=== PATIENT | male | born 1980 | race Caucasian/White ===

== ENCOUNTER 2019-12-11 11:35 | Day surgery (SDC) | payer OTHER ==
[~2019-12-11] VITALS: Ht 177.8 cm; Wt 84.6 kg
[2019-12-11] MEDS ORDERED: EPINEPHrine SYRINGE 1 MG/10 ML SYRINGE ONE (12:00)
[2019-12-11] MEDS ORDERED: VECURONIUM BOLUS 10 MG VIAL. IV ONE (15:45)
[2019-12-11] MEDS ORDERED: ceFAZolin SODIUM IV Push 1 GM VIAL. IVP PRN (15:45)
[2019-12-11 16:23] LABS: BASO # 0.1 x10^3/uL (0.0-0.2); BASO % 0 % (0-3); EOS % 0 % (0-3); HEMATOCRIT 47.9 % (39.0-53.0); HEMOGLOBIN 15.5 g/dL (13.0-17.5); LYMPH # 1.7 x10^3/uL (1.0-4.8); LYMPH % 6 % (24-48); MEAN CORPUSCULAR HEMOGLOBIN 29 pg (25-35); MEAN CORPUSCULAR HGB CONC 32 g/dL (31-37); MEAN CORPUSCULAR VOLUME 88 fL (79-100); MONO % 4 % (0-9); NEUT # 24.3 x10^3/uL (1.8-7.7); NEUT % 90 % (31-73); PLATELET COUNT 265 x10^3/uL (140-400); RED BLOOD COUNT 5.43 x10^6/uL (4.30-5.70); RED CELL DISTRIBUTION WIDTH 14.1 % (11.5-14.5)
[2019-12-11 16:26] LABS: BILIRUBIN,URINE NEGATIVE (NEG); CLARITY,URINE CLEAR; COLOR,URINE YELLOW; NITRITE,URINE NEGATIVE (NEG); PROTEIN,URINE 30 mg/dL (NEG-TRACE); UROBILINOGEN,URINE 0.2 mg/dL (0.2 mg/dL)
[2019-12-11 16:35] LABS: BASE EXCESS ABG -10 mmol/L (-3-3); HCO3 ABG 14 mmol/L (21-28); PCO2 ABG 26 mmHg (35-46); PO2 ABG 226 mmHg (85-108); SAT O2 ABG 99 % (92-99)
[2019-12-11 16:36] LABS: FIO2 ABG 100
[2019-12-11 16:45] LABS: PROTHROMBIN TIME PATIENT 13.2 SEC (11.7-14.0)
[2019-12-11 16:54] LABS: GRANULAR CASTS,URINE FEW /HPF
[2019-12-11 16:55] LABS: BACTERIA,URINE 0 /HPF (0-FEW)
[2019-12-11 16:57] LABS: SPERM,URINE PRESENT /HPF
[2019-12-11 17:03] LABS: ALBUMIN 3.1 g/dL (3.4-5.0); CALCIUM 7.8 mg/dL (8.5-10.1); CREATININE 5.2 mg/dL (0.7-1.3); DIRECT BILIRUBIN 0.2 mg/dL (0.0-0.2); GFR 12.5; MAGNESIUM 1.8 mg/dL (1.8-2.4); PHOSPHORUS 1.3 mg/dL (2.6-4.7); TOTAL BILIRUBIN 0.9 mg/dL (0.2-1.0); TOTAL PROTEIN 5.9 g/dL (6.4-8.2)
[2019-12-11 17:08] LABS: POTASSIUM 8.5 mmol/L (3.5-5.1)
[2019-12-11] MEDS ORDERED: ALBUMIN HUMAN 25% 50 ML IV ONE (17:45)
[2019-12-11] MEDS ORDERED: CALCIUM CHLORIDE 1,000 MG/10 ML DISP.SYRIN IV ONE (17:45)
[2019-12-11 17:51] LABS: BASE EXCESS ABG -11 mmol/L (-3-3); HCO3 ABG 14 mmol/L (21-28); PCO2 ABG 30 mmHg (35-46); PO2 ABG 320 mmHg (85-108); SAT O2 ABG 99 % (92-99)
[2019-12-11 17:52] LABS: FIO2 ABG 100
[2019-12-11] MEDS ORDERED: NOREPINEPHRINE VIAL 8 MG in IV DEXTROSE 5% 250 ML IV PRN (18:00)
[2019-12-11] MEDS ORDERED: SODIUM BICARB ADULT 8.4% 50 MEQ/50 ML DISP.SYRIN. IV ONE (18:00)
[2019-12-11] MEDS ORDERED: NOREPINEPHRINE VIAL 32 MG in IV DEXTROSE 5% 250 ML IV PRN (18:00)
[2019-12-11 18:57] LABS: % BANDS 20 % (0-9); % LYMPHS 7 % (24-48); % MONOS 2 % (0-10); % SEGS 71 % (35-66); PLT ESTIMATE ADEQUATE (ADEQUATE)
[2019-12-11 19:00] VITALS: BP 122/78
[2019-12-11] MEDS ORDERED: FUROSEMIDE 20 MG/2 ML VIAL. IVP ONE (19:00)
[2019-12-11] MEDS ORDERED: LIDOCAINE WITH 8.4% SOD BICARB 3 ML DISP.SYRIN. ONE (19:42)
[2019-12-11] MEDS ORDERED: IV NORMAL SALINE 500ML BAG 500 ML IV ONE (19:45)
[2019-12-11] MEDS ORDERED: LIDOCAINE WITH 8.4% SOD BICARB 3 ML DISP.SYRIN. INJ ONE (19:45)
[2019-12-11 20:00] VITALS: BP 126/84
--- NOTE | 2019-12-11 20:45 | RAD ---
PORTABLE CHEST 1V INDICATION: Dialysis line insertion. COMPARISON STUDY: 12/11/2019. FINDINGS: Life Support Devices: Right IJ dual-lumen catheter terminates at the superior cavoatrial junction. Stable enteric and symmetric tube. Lungs: Normal lung volume. Mild bibasilar opacities. Normal pulmonary vasculature. Pleura: No pleural effusion or pneumothorax. Heart and Mediastinum: Stable cardiomediastinal silhouette and great vessels. IMPRESSION: 1. New right IJ dual-lumen catheter terminating at the superior cavoatrial junction. No pneumothorax. Remaining life support devices are stable. 2. Mild bibasilar opacities, possibly subsegmental atelectasis. Electronically signed by: Franky Leone MD (12/11/2019 8:42 PM) [id number]
[2019-12-11 21:00] VITALS: BP 108/72
[2019-12-11 21:52] LABS: BASO % 0 % (0-3); EOS % 0 % (0-3); HEMATOCRIT 45.2 % (39.0-53.0); HEMOGLOBIN 14.8 g/dL (13.0-17.5); LYMPH # 1.2 x10^3/uL (1.0-4.8); LYMPH % 6 % (24-48); MEAN CORPUSCULAR HEMOGLOBIN 29 pg (25-35); MEAN CORPUSCULAR HGB CONC 33 g/dL (31-37); MEAN CORPUSCULAR VOLUME 89 fL (79-100); MONO # 0.6 x10^3/uL (0.0-1.1); MONO % 3 % (0-9); NEUT # 19.1 x10^3/uL (1.8-7.7); NEUT % 92 % (31-73); PLATELET COUNT 210 x10^3/uL (140-400); RED BLOOD COUNT 5.09 x10^6/uL (4.30-5.70); RED CELL DISTRIBUTION WIDTH 14.1 % (11.5-14.5); WHITE BLOOD COUNT 20.8 x10^3/uL (4.0-11.0)
[2019-12-11 22:00] VITALS: BP 99/65
[2019-12-11 22:01] LABS: PROTHROMBIN TIME PATIENT 13.3 SEC (11.7-14.0)
[2019-12-11] MEDS ORDERED: IV NORMAL SALINE 1000ML BAG 1,000 ML IV PRN ×2 (22:03)
[2019-12-11] MEDS ORDERED: 0.9 % SODIUM CHLORIDE 10 ML DISP.SYRIN. IV PRN ×2 (22:15)
[2019-12-11] MEDS ORDERED: DIALYSIS PATIENT. MC PRN ×2 (22:15)
[2019-12-11 22:25] LABS: ALBUMIN 3.2 g/dL (3.4-5.0); CALCIUM 8.6 mg/dL (8.5-10.1); CREATININE 5.1 mg/dL (0.7-1.3); DIRECT BILIRUBIN 0.3 mg/dL (0.0-0.2); GFR 12.8; PHOSPHORUS 2.7 mg/dL (2.6-4.7); TOTAL BILIRUBIN 1.1 mg/dL (0.2-1.0); TOTAL PROTEIN 6.3 g/dL (6.4-8.2)
[2019-12-11 22:33] LABS: POTASSIUM 8.1 mmol/L (3.5-5.1)
[2019-12-11 23:00] VITALS: BP 88/65
[2019-12-11 23:17] LABS: BASE EXCESS ABG -8 mmol/L (-3-3); CORRECTED PCO2 ABG 37 mmHg; CORRECTED PO2 ABG 313 mmHg; HCO3 ABG 18 mmol/L (21-28); SAT O2 ABG 99 % (92-99)
[2019-12-11] MEDS ORDERED: IV NORMAL SALINE 1000ML BAG 1,000 ML IV ONE (23:30)
[2019-12-11 23:35] LABS: FIO2 ABG 100; PCO2 ABG 40 mmHg (35-46); PO2 ABG 320 mmHg (85-108)
[2019-12-12] VITALS (9 sets, daily range): BP systolic 88–120; BP diastolic 44–80
[2019-12-12] MEDS ORDERED: VASOPRESSIN 40 UNIT in IV DEXTROSE 5% 100ML 100 ML IV ONE ×2
[2019-12-12] MEDS: VASOPRESSIN 20 UNIT in IV DEXTROSE 5% 100ML 100 ML IV PRN ×2 (00:22→09:43)
[2019-12-12] MEDS ORDERED: ALBUMIN HUMAN 25% 100 ML IV ONE ×2 (00:30→12:30)
[2019-12-12] MEDS ORDERED: ALBUMIN HUMAN 25% 50 ML IV ONE ×3 (00:30→12:15)
[2019-12-12] MEDS: IV NORMAL SALINE 1000ML BAG 1,000 ML IV SCH ×3 (02:06→09:59)
[2019-12-12 05:07] LABS: BASO # 0.1 x10^3/uL (0.0-0.2); BASO % 0 % (0-3); EOS % 0 % (0-3); HEMATOCRIT 38.9 % (39.0-53.0); HEMOGLOBIN 12.9 g/dL (13.0-17.5); LYMPH # 1.4 x10^3/uL (1.0-4.8); LYMPH % 6 % (24-48); MEAN CORPUSCULAR HEMOGLOBIN 29 pg (25-35); MEAN CORPUSCULAR HGB CONC 33 g/dL (31-37); MEAN CORPUSCULAR VOLUME 88 fL (79-100); MONO # 0.9 x10^3/uL (0.0-1.1); MONO % 4 % (0-9); NEUT # 19.2 x10^3/uL (1.8-7.7); NEUT % 89 % (31-73); PLATELET COUNT 195 x10^3/uL (140-400); RED BLOOD COUNT 4.42 x10^6/uL (4.30-5.70); RED CELL DISTRIBUTION WIDTH 14.3 % (11.5-14.5); WHITE BLOOD COUNT 21.5 x10^3/uL (4.0-11.0)
[2019-12-12 05:21] LABS: PROTHROMBIN TIME PATIENT 13.5 SEC (11.7-14.0)
[2019-12-12 05:27] LABS: ALBUMIN 3.4 g/dL (3.4-5.0); DIRECT BILIRUBIN 0.4 mg/dL (0.0-0.2); MAGNESIUM 1.5 mg/dL (1.8-2.4); PHOSPHORUS 5.7 mg/dL (2.6-4.7); TOTAL BILIRUBIN 1.3 mg/dL (0.2-1.0)
[2019-12-12 05:35] LABS: BASE EXCESS ABG -5 mmol/L (-3-3); CORRECTED PCO2 ABG 33 mmHg; CORRECTED PH ABG 7.38; CORRECTED PO2 ABG 338 mmHg; HCO3 ABG 19 mmol/L (21-28); PCO2 ABG 33 mmHg (35-46); PO2 ABG 337 mmHg (85-108); SAT O2 ABG 99 % (92-99)
[2019-12-12 05:41] LABS: CALCIUM 8.1 mg/dL (8.5-10.1); CREATININE 3.6 mg/dL (0.7-1.3); GFR 19.1; POTASSIUM 4.4 mmol/L (3.5-5.1)
[2019-12-12] MEDS ORDERED: MAGNESIUM SULFATE 2GM 50 ML IV ONE (06:00)
[2019-12-12 06:02] LABS: FIO2 ABG 100
[2019-12-12] MEDS ORDERED: CALCIUM CHLORIDE 1,000 MG in IV NORMAL SALINE 100ML 100 ML IV ONE ×3 (06:30→19:00)
--- NOTE | 2019-12-12 06:47 | RAD ---
PORTABLE CHEST 1V Clinical History: Technique: AP view of the chest was obtained at 12/12/2019 5:00 AM. Comparison: December 11, 2019. Findings: The heart is normal size. The portal vessels appear normal. There is patchy opacities in the lung bases. The endotracheal tube NG tube and right jugular dual-lumen catheter unchanged. Impression: Basal infiltrates appear improved and are likely resolving discoid atelectasis. Electronically signed by: Mumtaz Peck III, MD (12/12/2019 6:45 AM) [id number]
--- NOTE | 2019-12-12 08:49 | PDOC2 ---
CONSULT Date of Consult Date of Consult DATE: 12/12/19 TIME: 08:41 Reason for Consult Reason for Consult: Acute kidney injury, critical hyperkalemia Referring Physician Referring Physician: [facility] Identification/Chief Complaint Chief Complaint Prisoner hung himself Source Source: Unable to obtain due to (Other) History of Present Illness Reason for Visit: Ricky is a 39-year-old male inmate who was found down and his cell by another inmate. Reportedly 45 minutes of CPR was done. He was brought to our facility where he was noted to have a potassium of 8.5 and a bicarbonate of 17 BUN of 43 and a creatinine of 5.2 phosphorus of 1.3 elevated LFTs and LDH of 1695 and a CPK of 5700 and troponin of 71. In this setting I was asked by [facility] to provide dialysis to correct his electrolytes in light of potential organ harvesting. Patient is currently deemed to be and hence I'm unable to get much in terms of other history from him. No other source of information is readily available at this time. Past Medical History Pulmonary: No pertinent hx Heme/Onc: No pertinent hx Hepatobiliary: No pertinent hx Psych: Depression Renal/: No pertinent hx Endocrine: No pertinent hx Family History Family History: Family History Unknown Social History # pack years ALCOHOL: none Drugs: None Current Medications Current Medications Current Medications Vecuronium [place] (Norcuron Bolus) 10 mg 1X ONCE IV Last administered on 12/11/19at 15:45; Start 12/11/19 at 15:45; Stop 12/11/19 at 15:48; Status DC Cefazolin Sodium (Ancef) 1 gm 1X PREOP PRN IVP PRIOR TO PROCEDURE; Start 12/11/19 at 15:45 Calcium Chloride (Calcium Chloride) 1,000 mg 1X ONCE IV Last administered on 12/11/19at 17:57; Start 12/11/19 at 17:45; Stop 12/11/19 at 17:49; Status DC Albumin Human 50 ml @ 50 mls/hr 1X ONCE IV Last administered on 12/11/19at 17:56; Start 12/11/19 at 17:45; Stop 12/11/19 at 18:44; Status DC Sodium Chloride 1,000 ml @ 175 mls/hr Q5H43M IV Last administered on 12/12/19at 02:06; Start 12/11/19 at 18:00 Norepinephrine Bitartrate 32 mg/ Dextrose 282 ml @ 4.317 mls/ hr CONT PRN IV PER PROTOCOL; Start 12/11/19 at 18:00; Status UNV Norepinephrine Bitartrate 8 mg/ Dextrose 258 ml @ 17.996 mls/ hr CONT PRN IV PER PROTOCOL; Start 12/11/19 at 18:00 Sodium Bicarbonate (Sodium Bicarb Adult 8.4% Syr) 50 meq 1X ONCE IV Last administered on 12/11/19at 17:58; Start 12/11/19 at 18:00; Stop 12/11/19 at 18:01; Status DC Furosemide (Lasix) 60 mg 1X ONCE IVP Last administered on 12/11/19at 19:39; Start 12/11/19 at 19:00; Stop 12/11/19 at 19:01; Status DC Sodium Chloride 500 ml @ 500 mls/hr 1X ONCE IV Last administered on 12/11/19at 19:45; Start 12/11/19 at 19:45; Stop 12/11/19 at 20:44; Status DC Lidocaine HCl (Buffered Lidocaine 1%) 6 ml 1X ONCE INJ Last administered on 12/11/19at 20:09; Start 12/11/19 at 19:45; Stop 12/11/19 at 19:46; Status DC Lidocaine HCl (Buffered Lidocaine 1%) 3 ml STK-MED ONCE .ROUTE ; Start 12/11/19 at 19:42; Stop 12/11/19 at 19:43; Status DC Sodium Chloride 1,000 ml @ 1,000 mls/hr Q1H PRN IV hypotension; Start 12/11/19 at 22:03; Stop 12/12/19 at 04:02; Status DC Sodium Chloride (Normal Saline Flush) 10 ml 1X PRN PRN IV AP catheter pack; Start 12/11/19 at 22:15; Stop 12/12/19 at 22:14 Sodium Chloride (Normal Saline Flush) 10 ml 1X PRN PRN IV [employer]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; Start 12/11/19 at 22:15; Stop 12/12/19 at 22:14 Sodium Chloride 1,000 ml @ 400 mls/hr Q2H30M PRN IV PATENCY; Start 12/11/19 at 22:03; Stop 12/12/19 at 10:02 Info (PHARMACY MONITORING -- do not chart) 1 each PRN DAILY PRN MC SEE COMMENTS; Start 12/11/19 at 22:15; Status UNV Info (PHARMACY MONITORING -- do not chart) 1 each PRN DAILY PRN MC SEE COMMENTS; Start 12/11/19 at 22:15 Sodium Chloride 1,000 ml @ 1,000 mls/hr 1X ONCE IV Last administered on 12/11/19at 23:23; Start 12/11/19 at 23:30; Stop 12/12/19 at 00:29; Status DC Vasopressin 40 unit/Dextrose 102 ml @ 6 mls/hr 1X ONCE IV ; Start 12/12/19 at 00:00; Stop 12/12/19 at 16:59; Status UNV Vasopressin 20 unit/Dextrose 101 ml @ 12 mls/hr CONT PRN IV SEE I/O RECORD Last administered on 12/12/19at 00:22; Start 12/11/19 at 23:45 Albumin Human 100 ml @ 0 mls/hr 1X ONCE IV Last administered on 12/12/19at 00:04; Start 12/12/19 at 00:30; Stop 12/12/19 at 00:31; Status DC Albumin Human 50 ml @ 50 mls/hr 1X ONCE IV ; Start 12/12/19 at 00:30; Stop 12/12/19 at 01:29; Status DC Magnesium Sulfate 50 ml @ 25 mls/hr 1X ONCE IV Last administered on 12/12/19at 06:36; Start 12/12/19 at 06:00; Stop 12/12/19 at 07:59; Status DC Calcium Chloride 1000 mg/Sodium Chloride 110 ml @ 220 mls/hr 1X ONCE IV Last administered on 12/12/19at 05:53; Start 12/12/19 at 06:30; Stop 12/12/19 at 06:59; Status DC Allergies Allergies: Coded Allergies: No Known Drug Allergies (Unverified , 12/10/19) ROS Review of System Unable to be obtained Physical Exam Physical Exam Patient remains intubated, lying prone Lungs are clear to auscultation Heart sounds are S1-S2 No bowel sounds No edema Multnai catheter in place No palpable organomegaly No skin rashes Vital Signs Vital Signs Date Time Temp Pulse Resp B/P (MAP) Pulse Ox O2 Delivery O2 Flow Rate FiO2 12/12/19 07:40 99 Ventilator 12/12/19 06:00 99.1 115 20 100/58 (72) 99.1 Assessment & Plan Critical hyperkalemia: Status post dialysis as requested by bedrest transplant at work yesterday. This was accomplished late last night. Potassium was corrected after dialysis and is down to 4.4 currently. Acute renal failure urine output is preserved Several rhabdomyolysis Possible non-STEMI We'll be available for dialysis if required. Labs Labs Laboratory Tests Test 12/11/19 16:10 12/11/19 16:15 12/11/19 16:30 12/11/19 17:30 White Blood Count 27.0 x10^3/uL (4.0-11.0) Red Blood Count 5.43 x10^6/uL (4.30-5.70) Hemoglobin 15.5 g/dL (13.0-17.5) Hematocrit 47.9 % (39.0-53.0) Mean Corpuscular Volume 88 fL (79-100) Mean Corpuscular Hemoglobin 29 pg (25-35) Mean Corpuscular Hemoglobin Concent 32 g/dL (31-37) Red Cell Distribution Width 14.1 % (11.5-14.5) Platelet Count 265 x10^3/uL (140-400) Neutrophils (%) (Auto) 90 % (31-73) Lymphocytes (%) (Auto) 6 % (24-48) Monocytes (%) (Auto) 4 % (0-9) Eosinophils (%) (Auto) 0 % (0-3) Basophils (%) (Auto) 0 % (0-3) Neutrophils # (Auto) 24.3 x10^3/uL (1.8-7.7) Lymphocytes # (Auto) 1.7 x10^3/uL (1.0-4.8) Monocytes # (Auto) 1.0 x10^3/uL (0.0-1.1) Eosinophils # (Auto) 0.0 x10^3/uL (0.0-0.7) Basophils # (Auto) 0.1 x10^3/uL (0.0-0.2) Segmented Neutrophils % 71 % (35-66) Band Neutrophils % 20 % (0-9) Lymphocytes % 7 % (24-48) Monocytes % 2 % (0-10) Platelet Estimate Adequate (ADEQUATE) Prothrombin Time 13.2 SEC (11.7-14.0) Prothromb Time International Ratio 1.0 (0.8-1.1) Activated Partial Thromboplast Time 32 SEC (24-38) Fibrinogen 388 mg/dL (200-440) Sodium Level 137 mmol/L (136-145) Potassium Level 8.5 mmol/L (3.5-5.1) 8.0 mmol/L (3.5-5.1) Chloride Level 108 mmol/L (98-107) Carbon Dioxide Level 17 mmol/L (21-32) Anion Gap 12 (6-14) Blood Urea Nitrogen 43 mg/dL (8-26) Creatinine 5.2 mg/dL (0.7-1.3) Estimated GFR (Cockcroft-Gault) 12.5 Glucose Level 96 mg/dL (70-99) Lactic Acid Level 1.5 mmol/L (0.4-2.0) Calcium Level 7.8 mg/dL (8.5-10.1) Ionized Calcium 0.99 mmol/L (1.13-1.32) Phosphorus Level 1.3 mg/dL (2.6-4.7) Magnesium Level 1.8 mg/dL (1.8-2.4) Total Bilirubin 0.9 mg/dL (0.2-1.0) Direct Bilirubin 0.2 mg/dL (0.0-0.2) Gamma Glutamyl Transpeptidase 226 U/L (10-85) Aspartate Amino Transf (AST/SGOT) 954 U/L (15-37) Alanine Aminotransferase (ALT/SGPT) 767 U/L (16-63) Alkaline Phosphatase 108 U/L (46-116) Lactate Dehydrogenase 1695 U/L (85-227) Creatine Kinase 5697 U/L (39-308) Troponin I Quantitative 71.544 ng/mL (0.000-0.055) Total Protein 5.9 g/dL (6.4-8.2) Albumin 3.1 g/dL (3.4-5.0) Amylase Level 277 U/L (25-115) Lipase 182 U/L (73-393) Urine Collection Type Unknown Urine Color Yellow Urine Clarity Clear Urine pH 6.0 Urine Specific [place] 1.015 Urine Protein 30 mg/dL (NEG-TRACE) Urine Glucose (UA) Negative mg/dL (NEG) Urine Ketones (Stick) Negative mg/dL (NEG) Urine Blood Large (NEG) Urine Nitrite Negative (NEG) Urine Bilirubin Negative (NEG) Urine Urobilinogen Dipstick 0.2 mg/dL (0.2 mg/dL) Urine Leukocyte Esterase Negative (NEG) Urine RBC 3-5 /HPF (0-2) Urine WBC 5-10 /HPF (0-4) Urine Bacteria 0 /HPF (0-FEW) Urine Granular Casts Few /HPF Urine Mucus Slight /LPF Urine Sperm Present /HPF O2 Saturation 99 % (92-99) Arterial Blood pH 7.34 (7.35-7.45) Arterial Blood pCO2 at Patient Temp 26 mmHg (35-46) Arterial Blood pO2 at Patient Temp 226 mmHg (85-108) Arterial Blood HCO3 14 mmol/L (21-28) Arterial Blood Base Excess -10 mmol/L (-3-3) FiO2 100 Test 12/11/19 17:45 12/11/19 18:24 12/11/19 21:30 12/11/19 21:41 O2 Saturation 99 % (92-99) Arterial Blood pH 7.29 (7.35-7.45) Arterial Blood pCO2 at Patient Temp 30 mmHg (35-46) Arterial Blood pO2 at Patient Temp 320 mmHg (85-108) Arterial Blood HCO3 14 mmol/L (21-28) Arterial Blood Base Excess -11 mmol/L (-3-3) FiO2 100 Glucose (Fingerstick) 89 mg/dL (70-99) 106 mg/dL (70-99) White Blood Count 20.8 x10^3/uL (4.0-11.0) Red Blood Count 5.09 x10^6/uL (4.30-5.70) Hemoglobin 14.8 g/dL (13.0-17.5) Hematocrit 45.2 % (39.0-53.0) Mean Corpuscular Volume 89 fL (79-100) Mean Corpuscular Hemoglobin 29 pg (25-35) Mean Corpuscular Hemoglobin Concent 33 g/dL (31-37) Red Cell Distribution Width 14.1 % (11.5-14.5) Platelet Count 210 x10^3/uL (140-400) Neutrophils (%) (Auto) 92 % (31-73) Lymphocytes (%) (Auto) 6 % (24-48) Monocytes (%) (Auto) 3 % (0-9) Eosinophils (%) (Auto) 0 % (0-3) Basophils (%) (Auto) 0 % (0-3) Neutrophils # (Auto) 19.1 x10^3/uL (1.8-7.7) Lymphocytes # (Auto) 1.2 x10^3/uL (1.0-4.8) Monocytes # (Auto) 0.6 x10^3/uL (0.0-1.1) Eosinophils # (Auto) 0.0 x10^3/uL (0.0-0.7) Basophils # (Auto) 0.0 x10^3/uL (0.0-0.2) Prothrombin Time 13.3 SEC (11.7-14.0) Prothromb Time International Ratio 1.0 (0.8-1.1) Activated Partial Thromboplast Time 28 SEC (24-38) Fibrinogen 424 mg/dL (200-440) Sodium Level 143 mmol/L (136-145) Potassium Level 8.1 mmol/L (3.5-5.1) Chloride Level 113 mmol/L (98-107) Carbon Dioxide Level 17 mmol/L (21-32) Anion Gap 13 (6-14) Blood Urea Nitrogen 48 mg/dL (8-26) Creatinine 5.1 mg/dL (0.7-1.3) Estimated GFR (Cockcroft-Gault) 12.8 Glucose Level 120 mg/dL (70-99) Lactic Acid Level 1.0 mmol/L (0.4-2.0) Calcium Level 8.6 mg/dL (8.5-10.1) Ionized Calcium 1.13 mmol/L (1.13-1.32) Phosphorus Level 2.7 mg/dL (2.6-4.7) Magnesium Level 2.0 mg/dL (1.8-2.4) Total Bilirubin 1.1 mg/dL (0.2-1.0) Direct Bilirubin 0.3 mg/dL (0.0-0.2) Gamma Glutamyl Transpeptidase 188 U/L (10-85) Aspartate Amino Transf (AST/SGOT) 908 U/L (15-37) Alanine Aminotransferase (ALT/SGPT) 729 U/L (16-63) Alkaline Phosphatase 112 U/L (46-116) Lactate Dehydrogenase 1713 U/L (85-227) Creatine Kinase 5553 U/L (39-308) Troponin I Quantitative 38.041 ng/mL (0.000-0.055) Total Protein 6.3 g/dL (6.4-8.2) Albumin 3.2 g/dL (3.4-5.0) Amylase Level 265 U/L (25-115) Lipase 111 U/L (73-393) Test 12/11/19 23:02 12/12/19 02:54 12/12/19 04:50 12/12/19 04:51 O2 Saturation 99 % (92-99) Arterial Blood pH 7.28 (7.35-7.45) Arterial Blood pH (Temp corrected) 7.30 Arterial Blood pCO2 at Patient Temp 40 mmHg (35-46) Arterial Blood pCO2 (Temp correct) 37 mmHg Arterial Blood pO2 at Patient Temp 320 mmHg (85-108) Arterial Blood pO2 (Temp corrected) 313 mmHg Arterial Blood HCO3 18 mmol/L (21-28) Arterial Blood Base Excess -8 mmol/L (-3-3) FiO2 100 Glucose (Fingerstick) 140 mg/dL (70-99) 133 mg/dL (70-99) White Blood Count 21.5 x10^3/uL (4.0-11.0) Red Blood Count 4.42 x10^6/uL (4.30-5.70) Hemoglobin 12.9 g/dL (13.0-17.5) Hematocrit 38.9 % (39.0-53.0) Mean Corpuscular Volume 88 fL (79-100) Mean Corpuscular Hemoglobin 29 pg (25-35) Mean Corpuscular Hemoglobin Concent 33 g/dL (31-37) Red Cell Distribution Width 14.3 % (11.5-14.5) Platelet Count 195 x10^3/uL (140-400) Neutrophils (%) (Auto) 89 % (31-73) Lymphocytes (%) (Auto) 6 % (24-48) Monocytes (%) (Auto) 4 % (0-9) Eosinophils (%) (Auto) 0 % (0-3) Basophils (%) (Auto) 0 % (0-3) Neutrophils # (Auto) 19.2 x10^3/uL (1.8-7.7) Lymphocytes # (Auto) 1.4 x10^3/uL (1.0-4.8) Monocytes # (Auto) 0.9 x10^3/uL (0.0-1.1) Eosinophils # (Auto) 0.0 x10^3/uL (0.0-0.7) Basophils # (Auto) 0.1 x10^3/uL (0.0-0.2) Prothrombin Time 13.5 SEC (11.7-14.0) Prothromb Time International Ratio 1.1 (0.8-1.1) Activated Partial Thromboplast Time 29 SEC (24-38) Fibrinogen 438 mg/dL (200-440) Sodium Level 143 mmol/L (136-145) Potassium Level 4.4 mmol/L (3.5-5.1) Chloride Level 105 mmol/L (98-107) Carbon Dioxide Level 24 mmol/L (21-32) Anion Gap 14 (6-14) Blood Urea Nitrogen 27 mg/dL (8-26) Creatinine 3.6 mg/dL (0.7-1.3) Estimated GFR (Cockcroft-Gault) 19.1 Glucose Level 144 mg/dL (70-99) Lactic Acid Level 1.7 mmol/L (0.4-2.0) Calcium Level 8.1 mg/dL (8.5-10.1) Ionized Calcium 0.98 mmol/L (1.13-1.32) Phosphorus Level 5.7 mg/dL (2.6-4.7) Magnesium Level 1.5 mg/dL (1.8-2.4) Total Bilirubin 1.3 mg/dL (0.2-1.0) Direct Bilirubin 0.4 mg/dL (0.0-0.2) Gamma Glutamyl Transpeptidase 147 U/L (10-85) Aspartate Amino Transf (AST/SGOT) 703 U/L (15-37) Alanine Aminotransferase (ALT/SGPT) 636 U/L (16-63) Alkaline Phosphatase 102 U/L (46-116) Lactate Dehydrogenase 1498 U/L (85-227) Creatine Kinase 4068 U/L (39-308) Troponin I Quantitative 23.921 ng/mL (0.000-0.055) Total Protein 6.0 g/dL (6.4-8.2) Albumin 3.4 g/dL (3.4-5.0) Amylase Level 210 U/L (25-115) Lipase 52 U/L (73-393) Hepatitis B Surface Antigen Nonreactive (Nonreactive) Hepatitis B Surface Antibody Nonreactive Test 12/12/19 05:34 O2 Saturation 99 % (92-99) Arterial Blood pH 7.39 (7.35-7.45) Arterial Blood pH (Temp corrected) 7.38 Arterial Blood pCO2 at Patient Temp 33 mmHg (35-46) Arterial Blood pCO2 (Temp correct) 33 mmHg Arterial Blood pO2 at Patient Temp 337 mmHg (85-108) Arterial Blood pO2 (Temp corrected) 338 mmHg Arterial Blood HCO3 19 mmol/L (21-28) Arterial Blood Base Excess -5 mmol/L (-3-3) FiO2 100 Laboratory Tests Test 12/11/19 16:10 12/11/19 16:15 12/11/19 16:30 12/11/19 17:30 White Blood Count 27.0 x10^3/uL (4.0-11.0) Red Blood Count 5.43 x10^6/uL (4.30-5.70) Hemoglobin 15.5 g/dL (13.0-17.5) Hematocrit 47.9 % (39.0-53.0) Mean Corpuscular Volume 88 fL (79-100) Mean Corpuscular Hemoglobin 29 pg (25-35) Mean Corpuscular Hemoglobin Concent 32 g/dL (31-37) Red Cell Distribution Width 14.1 % (11.5-14.5) Platelet Count 265 x10^3/uL (140-400) Neutrophils (%) (Auto) 90 % (31-73) Lymphocytes (%) (Auto) 6 % (24-48) Monocytes (%) (Auto) 4 % (0-9) Eosinophils (%) (Auto) 0 % (0-3) Basophils (%) (Auto) 0 % (0-3) Neutrophils # (Auto) 24.3 x10^3/uL (1.8-7.7) Lymphocytes # (Auto) 1.7 x10^3/uL (1.0-4.8) Monocytes # (Auto) 1.0 x10^3/uL (0.0-1.1) Eosinophils # (Auto) 0.0 x10^3/uL (0.0-0.7) Basophils # (Auto) 0.1 x10^3/uL (0.0-0.2) Segmented Neutrophils % 71 % (35-66) Band Neutrophils % 20 % (0-9) Lymphocytes % 7 % (24-48) Monocytes % 2 % (0-10) Platelet Estimate Adequate (ADEQUATE) Prothrombin Time 13.2 SEC (11.7-14.0) Prothromb Time International Ratio 1.0 (0.8-1.1) Activated Partial Thromboplast Time 32 SEC (24-38) Fibrinogen 388 mg/dL (200-440) Sodium Level 137 mmol/L (136-145) Potassium Level 8.5 mmol/L (3.5-5.1) 8.0 mmol/L (3.5-5.1) Chloride Level 108 mmol/L (98-107) Carbon Dioxide Level 17 mmol/L (21-32) Anion Gap 12 (6-14) Blood Urea Nitrogen 43 mg/dL (8-26) Creatinine 5.2 mg/dL (0.7-1.3) Estimated GFR (Cockcroft-Gault) 12.5 Glucose Level 96 mg/dL (70-99) Lactic Acid Level 1.5 mmol/L (0.4-2.0) Calcium Level 7.8 mg/dL (8.5-10.1) Ionized Calcium 0.99 mmol/L (1.13-1.32) Phosphorus Level 1.3 mg/dL (2.6-4.7) Magnesium Level 1.8 mg/dL (1.8-2.4) Total Bilirubin 0.9 mg/dL (0.2-1.0) Direct Bilirubin 0.2 mg/dL (0.0-0.2) Gamma Glutamyl Transpeptidase 226 U/L (10-85) Aspartate Amino Transf (AST/SGOT) 954 U/L (15-37) Alanine Aminotransferase (ALT/SGPT) 767 U/L (16-63) Alkaline Phosphatase 108 U/L (46-116) Lactate Dehydrogenase 1695 U/L (85-227) Creatine Kinase 5697 U/L (39-308) Troponin I Quantitative 71.544 ng/mL (0.000-0.055) Total Protein 5.9 g/dL (6.4-8.2) Albumin 3.1 g/dL (3.4-5.0) Amylase Level 277 U/L (25-115) Lipase 182 U/L (73-393) Urine Collection Type Unknown Urine Color Yellow Urine Clarity Clear Urine pH 6.0 Urine Specific [place] 1.015 Urine Protein 30 mg/dL (NEG-TRACE) Urine Glucose (UA) Negative mg/dL (NEG) Urine Ketones (Stick) Negative mg/dL (NEG) Urine Blood Large (NEG) Urine Nitrite Negative (NEG) Urine Bilirubin Negative (NEG) Urine Urobilinogen Dipstick 0.2 mg/dL (0.2 mg/dL) Urine Leukocyte Esterase Negative (NEG) Urine RBC 3-5 /HPF (0-2) Urine WBC 5-10 /HPF (0-4) Urine Bacteria 0 /HPF (0-FEW) Urine Granular Casts Few /HPF Urine Mucus Slight /LPF Urine Sperm Present /HPF O2 Saturation 99 % (92-99) Arterial Blood pH 7.34 (7.35-7.45) Arterial Blood pCO2 at Patient Temp 26 mmHg (35-46) Arterial Blood pO2 at Patient Temp 226 mmHg (85-108) Arterial Blood HCO3 14 mmol/L (21-28) Arterial Blood Base Excess -10 mmol/L (-3-3) FiO2 100 Test 12/11/19 17:45 12/11/19 18:24 12/11/19 21:30 12/11/19 21:41 O2 Saturation 99 % (92-99) Arterial Blood pH 7.29 (7.35-7.45) Arterial Blood pCO2 at Patient Temp 30 mmHg (35-46) Arterial Blood pO2 at Patient Temp 320 mmHg (85-108) Arterial Blood HCO3 14 mmol/L (21-28) Arterial Blood Base Excess -11 mmol/L (-3-3) FiO2 100 Glucose (Fingerstick) 89 mg/dL (70-99) 106 mg/dL (70-99) White Blood Count 20.8 x10^3/uL (4.0-11.0) Red Blood Count 5.09 x10^6/uL (4.30-5.70) Hemoglobin 14.8 g/dL (13.0-17.5) Hematocrit 45.2 % (39.0-53.0) Mean Corpuscular Volume 89 fL (79-100) Mean Corpuscular Hemoglobin 29 pg (25-35) Mean Corpuscular Hemoglobin Concent 33 g/dL (31-37) Red Cell Distribution Width 14.1 % (11.5-14.5) Platelet Count 210 x10^3/uL (140-400) Neutrophils (%) (Auto) 92 % (31-73) Lymphocytes (%) (Auto) 6 % (24-48) Monocytes (%) (Auto) 3 % (0-9) Eosinophils (%) (Auto) 0 % (0-3) Basophils (%) (Auto) 0 % (0-3) Neutrophils # (Auto) 19.1 x10^3/uL (1.8-7.7) Lymphocytes # (Auto) 1.2 x10^3/uL (1.0-4.8) Monocytes # (Auto) 0.6 x10^3/uL (0.0-1.1) Eosinophils # (Auto) 0.0 x10^3/uL (0.0-0.7) Basophils # (Auto) 0.0 x10^3/uL (0.0-0.2) Prothrombin Time 13.3 SEC (11.7-14.0) Prothromb Time International Ratio 1.0 (0.8-1.1) Activated Partial Thromboplast Time 28 SEC (24-38) Fibrinogen 424 mg/dL (200-440) Sodium Level 143 mmol/L (136-145) Potassium Level 8.1 mmol/L (3.5-5.1) Chloride Level 113 mmol/L (98-107) Carbon Dioxide Level 17 mmol/L (21-32) Anion Gap 13 (6-14) Blood Urea Nitrogen 48 mg/dL (8-26) Creatinine 5.1 mg/dL (0.7-1.3) Estimated GFR (Cockcroft-Gault) 12.8 Glucose Level 120 mg/dL (70-99) Lactic Acid Level 1.0 mmol/L (0.4-2.0) Calcium Level 8.6 mg/dL (8.5-10.1) Ionized Calcium 1.13 mmol/L (1.13-1.32) Phosphorus Level 2.7 mg/dL (2.6-4.7) Magnesium Level 2.0 mg/dL (1.8-2.4) Total Bilirubin 1.1 mg/dL (0.2-1.0) Direct Bilirubin 0.3 mg/dL (0.0-0.2) Gamma Glutamyl Transpeptidase 188 U/L (10-85) Aspartate Amino Transf (AST/SGOT) 908 U/L (15-37) Alanine Aminotransferase (ALT/SGPT) 729 U/L (16-63) Alkaline Phosphatase 112 U/L (46-116) Lactate Dehydrogenase 1713 U/L (85-227) Creatine Kinase 5553 U/L (39-308) Troponin I Quantitative 38.041 ng/mL (0.000-0.055) Total Protein 6.3 g/dL (6.4-8.2) Albumin 3.2 g/dL (3.4-5.0) Amylase Level 265 U/L (25-115) Lipase 111 U/L (73-393) Test 12/11/19 23:02 12/12/19 02:54 12/12/19 04:50 12/12/19 04:51 O2 Saturation 99 % (92-99) Arterial Blood pH 7.28 (7.35-7.45) Arterial Blood pH (Temp corrected) 7.30 Arterial Blood pCO2 at Patient Temp 40 mmHg (35-46) Arterial Blood pCO2 (Temp correct) 37 mmHg Arterial Blood pO2 at Patient Temp 320 mmHg (85-108) Arterial Blood pO2 (Temp corrected) 313 mmHg Arterial Blood HCO3 18 mmol/L (21-28) Arterial Blood Base Excess -8 mmol/L (-3-3) FiO2 100 Glucose (Fingerstick) 140 mg/dL (70-99) 133 mg/dL (70-99) White Blood Count 21.5 x10^3/uL (4.0-11.0) Red Blood Count 4.42 x10^6/uL (4.30-5.70) Hemoglobin 12.9 g/dL (13.0-17.5) Hematocrit 38.9 % (39.0-53.0) Mean Corpuscular Volume 88 fL (79-100) Mean Corpuscular Hemoglobin 29 pg (25-35) Mean Corpuscular Hemoglobin Concent 33 g/dL (31-37) Red Cell Distribution Width 14.3 % (11.5-14.5) Platelet Count 195 x10^3/uL (140-400) Neutrophils (%) (Auto) 89 % (31-73) Lymphocytes (%) (Auto) 6 % (24-48) Monocytes (%) (Auto) 4 % (0-9) Eosinophils (%) (Auto) 0 % (0-3) Basophils (%) (Auto) 0 % (0-3) Neutrophils # (Auto) 19.2 x10^3/uL (1.8-7.7) Lymphocytes # (Auto) 1.4 x10^3/uL (1.0-4.8) Monocytes # (Auto) 0.9 x10^3/uL (0.0-1.1) Eosinophils # (Auto) 0.0 x10^3/uL (0.0-0.7) Basophils # (Auto) 0.1 x10^3/uL (0.0-0.2) Prothrombin Time 13.5 SEC (11.7-14.0) Prothromb Time International Ratio 1.1 (0.8-1.1) Activated Partial Thromboplast Time 29 SEC (24-38) Fibrinogen 438 mg/dL (200-440) Sodium Level 143 mmol/L (136-145) Potassium Level 4.4 mmol/L (3.5-5.1) Chloride Level 105 mmol/L (98-107) Carbon Dioxide Level 24 mmol/L (21-32) Anion Gap 14 (6-14) Blood Urea Nitrogen 27 mg/dL (8-26) Creatinine 3.6 mg/dL (0.7-1.3) Estimated GFR (Cockcroft-Gault) 19.1 Glucose Level 144 mg/dL (70-99) Lactic Acid Level 1.7 mmol/L (0.4-2.0) Calcium Level 8.1 mg/dL (8.5-10.1) Ionized Calcium 0.98 mmol/L (1.13-1.32) Phosphorus Level 5.7 mg/dL (2.6-4.7) Magnesium Level 1.5 mg/dL (1.8-2.4) Total Bilirubin 1.3 mg/dL (0.2-1.0) Direct Bilirubin 0.4 mg/dL (0.0-0.2) Gamma Glutamyl Transpeptidase 147 U/L (10-85) Aspartate Amino Transf (AST/SGOT) 703 U/L (15-37) Alanine Aminotransferase (ALT/SGPT) 636 U/L (16-63) Alkaline Phosphatase 102 U/L (46-116) Lactate Dehydrogenase 1498 U/L (85-227) Creatine Kinase 4068 U/L (39-308) Troponin I Quantitative 23.921 ng/mL (0.000-0.055) Total Protein 6.0 g/dL (6.4-8.2) Albumin 3.4 g/dL (3.4-5.0) Amylase Level 210 U/L (25-115) Lipase 52 U/L (73-393) Hepatitis B Surface Antigen Nonreactive (Nonreactive) Hepatitis B Surface Antibody Nonreactive Test 12/12/19 05:34 O2 Saturation 99 % (92-99) Arterial Blood pH 7.39 (7.35-7.45) Arterial Blood pH (Temp corrected) 7.38 Arterial Blood pCO2 at Patient Temp 33 mmHg (35-46) Arterial Blood pCO2 (Temp correct) 33 mmHg Arterial Blood pO2 at Patient Temp 337 mmHg (85-108) Arterial Blood pO2 (Temp corrected) 338 mmHg Arterial Blood HCO3 19 mmol/L (21-28) Arterial Blood Base Excess -5 mmol/L (-3-3) FiO2 100 Review All relevant outside records, renal labs, imaging studies, telemetry/EKG's were reviewed. Images Images Comparison: December 11, 2019. Findings: The heart is normal size. The portal vessels appear normal. There is patchy opacities in the lung bases. The endotracheal tube NG tube and right jugular dual-lumen catheter unchanged. Impression: Basal infiltrates appear improved and are likely resolving discoid atelectasis. DOUGLAS LAZO MD Dec 12, 2019 08:48
[2019-12-12 11:10] LABS: BASE EXCESS ABG -4 mmol/L (-3-3); HCO3 ABG 20 mmol/L (21-28); PCO2 ABG 33 mmHg (35-46); PO2 ABG > 503 mmHg (85-108); SAT O2 ABG 99 % (92-99)
[2019-12-12 11:12] LABS: FIO2 ABG 100
[2019-12-12 11:19] LABS: BASO # 0.1 x10^3/uL (0.0-0.2); BASO % 1 % (0-3); EOS % 0 % (0-3); HEMATOCRIT 33.6 % (39.0-53.0); HEMOGLOBIN 11.2 g/dL (13.0-17.5); LYMPH # 1.3 x10^3/uL (1.0-4.8); LYMPH % 8 % (24-48); MEAN CORPUSCULAR HEMOGLOBIN 30 pg (25-35); MEAN CORPUSCULAR HGB CONC 33 g/dL (31-37); MEAN CORPUSCULAR VOLUME 89 fL (79-100); MONO # 0.6 x10^3/uL (0.0-1.1); MONO % 4 % (0-9); NEUT # 13.6 x10^3/uL (1.8-7.7); NEUT % 87 % (31-73); PLATELET COUNT 143 x10^3/uL (140-400); RED BLOOD COUNT 3.79 x10^6/uL (4.30-5.70); RED CELL DISTRIBUTION WIDTH 13.8 % (11.5-14.5); WHITE BLOOD COUNT 15.6 x10^3/uL (4.0-11.0)
[2019-12-12 11:48] LABS: DIRECT BILIRUBIN 0.4 mg/dL (0.0-0.2); MAGNESIUM 2.1 mg/dL (1.8-2.4); PHOSPHORUS 5.7 mg/dL (2.6-4.7); TOTAL BILIRUBIN 1.3 mg/dL (0.2-1.0); TOTAL PROTEIN 4.8 g/dL (6.4-8.2)
[2019-12-12 11:50] LABS: CALCIUM 8.3 mg/dL (8.5-10.1); GFR 16.9; POTASSIUM 4.4 mmol/L (3.5-5.1)
[2019-12-12] MEDS ORDERED: CALCIUM CHLORIDE 2,000 MG in IV NORMAL SALINE 100ML 100 ML IV ONE (12:00)
[2019-12-12] MEDS: IV RINGERS,LACTATED 1000ML 1,000 ML IV SCH ×3 (12:24→23:48)
[2019-12-12 17:40] LABS: BASE EXCESS ABG -6 mmol/L (-3-3); HCO3 ABG 19 mmol/L (21-28); PCO2 ABG 36 mmHg (35-46); PO2 ABG 485 mmHg (85-108); SAT O2 ABG 99 % (92-99)
[2019-12-12 17:42] LABS: FIO2 ABG 100
[2019-12-12 17:51] LABS: BASO % 0 % (0-3); EOS % 0 % (0-3); HEMATOCRIT 28.7 % (39.0-53.0); HEMOGLOBIN 9.5 g/dL (13.0-17.5); LYMPH # 0.9 x10^3/uL (1.0-4.8); LYMPH % 10 % (24-48); MEAN CORPUSCULAR HEMOGLOBIN 29 pg (25-35); MEAN CORPUSCULAR HGB CONC 33 g/dL (31-37); MEAN CORPUSCULAR VOLUME 89 fL (79-100); MONO # 0.2 x10^3/uL (0.0-1.1); MONO % 3 % (0-9); NEUT # 7.9 x10^3/uL (1.8-7.7); NEUT % 87 % (31-73); PLATELET COUNT 109 x10^3/uL (140-400); RED BLOOD COUNT 3.24 x10^6/uL (4.30-5.70); RED CELL DISTRIBUTION WIDTH 14.1 % (11.5-14.5); WHITE BLOOD COUNT 9.1 x10^3/uL (4.0-11.0)
[2019-12-12 18:00] LABS: PROTHROMBIN TIME PATIENT 14.6 SEC (11.7-14.0)
[2019-12-12 18:07] LABS: ALBUMIN 2.9 g/dL (3.4-5.0); DIRECT BILIRUBIN 0.3 mg/dL (0.0-0.2); MAGNESIUM 1.9 mg/dL (1.8-2.4); TOTAL BILIRUBIN 1.2 mg/dL (0.2-1.0); TOTAL PROTEIN 4.7 g/dL (6.4-8.2)
[2019-12-12 18:16] LABS: CALCIUM 8.9 mg/dL (8.5-10.1); CREATININE 4.2 mg/dL (0.7-1.3); POTASSIUM 4.5 mmol/L (3.5-5.1)
[2019-12-12 19:15] LABS: % BANDS 29 % (0-9); % LYMPHS 10 % (24-48); % METAS 1 % (0-0); % MONOS 4 % (0-10); % SEGS 56 % (35-66); PLT ESTIMATE DECREASED (ADEQUATE)
[2019-12-12 19:16] LABS: TOXIC VACUOLATION PRESENT
[2019-12-12 23:38] LABS: BASE EXCESS ABG -6 mmol/L (-3-3); CORRECTED PCO2 ABG 36 mmHg; CORRECTED PH ABG 7.34; CORRECTED PO2 ABG 77 mmHg; HCO3 ABG 19 mmol/L (21-28); PCO2 ABG 37 mmHg (35-46); PO2 ABG 81 mmHg (85-108); SAT O2 ABG 95 % (92-99)
--- NOTE | 2019-12-12 23:38 | PDOC ---
Provider Note Provider Note Prelim Echo Report: Normal LV size and no evidence of hypertrophy. Normal LV systolic function and grossly normal wall motion. No significant valvular disease. Tricuspid aortic valve. No significant diastolic dysfunction. No significant pulmonary hypertension. Minimal RV dilation. Full report to follow in MARTHA Menendez MD Dec 12, 2019 23:38
[2019-12-12 23:57] LABS: FIO2 ABG 100
[2019-12-13 00:11] LABS: BASO % 0 % (0-3); EOS % 1 % (0-3); HEMATOCRIT 30.2 % (39.0-53.0); HEMOGLOBIN 10.1 g/dL (13.0-17.5); LYMPH # 0.8 x10^3/uL (1.0-4.8); LYMPH % 8 % (24-48); MEAN CORPUSCULAR HEMOGLOBIN 30 pg (25-35); MEAN CORPUSCULAR HGB CONC 33 g/dL (31-37); MEAN CORPUSCULAR VOLUME 89 fL (79-100); MONO # 0.3 x10^3/uL (0.0-1.1); MONO % 3 % (0-9); NEUT # 8.1 x10^3/uL (1.8-7.7); NEUT % 88 % (31-73); PLATELET COUNT 102 x10^3/uL (140-400); WHITE BLOOD COUNT 9.2 x10^3/uL (4.0-11.0)
[2019-12-13 00:23] LABS: PROTHROMBIN TIME PATIENT 14.1 SEC (11.7-14.0)
[2019-12-13 00:27] LABS: ALBUMIN 2.8 g/dL (3.4-5.0); DIRECT BILIRUBIN 0.3 mg/dL (0.0-0.2); MAGNESIUM 1.9 mg/dL (1.8-2.4); TOTAL BILIRUBIN 1.4 mg/dL (0.2-1.0); TOTAL PROTEIN 4.8 g/dL (6.4-8.2)
[2019-12-13 00:42] LABS: CALCIUM 8.3 mg/dL (8.5-10.1); CREATININE 4.4 mg/dL (0.7-1.3); GFR 15.1; POTASSIUM 4.4 mmol/L (3.5-5.1)
[2019-12-13] MEDS ORDERED: ALBUMIN HUMAN 25% 50 ML IV ONE (01:00)
--- NOTE | 2019-12-13 01:04 | RAD ---
PORTABLE CHEST 1V Clinical History: On ventilator Technique: AP view of the chest was obtained at 12/13/2019 12:06 AM. Comparison: None. Findings: There is an endotracheal tube with its tip well-positioned 5.2 cm below the erlin and an NG tube with its distal extent coiled in the proximal stomach. There is a right jugular line with its tip in the low SVC. There is patchy opacities in the lung bases. The pulmonary vessels appear normal. Impression: 1. Basal infiltrates likely pneumonia. 2. Support devices well positioned. Electronically signed by: Mumtaz Peck III, MD (12/13/2019 1:01 AM) [id number]
[2019-12-13] MEDS ORDERED: VECURONIUM BOLUS 10 MG VIAL. IV ONE (01:15)
[2019-12-13] MEDS ORDERED: FUROSEMIDE 20 MG/2 ML VIAL. IVP ONE (01:30)
[2019-12-13 02:20] LABS: BASE EXCESS ABG -7 mmol/L (-3-3); CORRECTED PCO2 ABG 35 mmHg; CORRECTED PH ABG 7.34; CORRECTED PO2 ABG 429 mmHg; HCO3 ABG 19 mmol/L (21-28); PCO2 ABG 36 mmHg (35-46); PO2 ABG 434 mmHg (85-108); SAT O2 ABG 99 % (92-99)
[2019-12-13 02:36] LABS: FIO2 ABG 100
[2019-12-13 04:07] LABS: HEMOGLOBIN A1C 5.5 % (4.8-5.6)
[2019-12-13 05:05] LABS: BASE EXCESS ABG -5 mmol/L (-3-3); CORRECTED PCO2 ABG 40 mmHg; CORRECTED PH ABG 7.33; CORRECTED PO2 ABG 447 mmHg; HCO3 ABG 21 mmol/L (21-28); PCO2 ABG 41 mmHg (35-46); PO2 ABG 452 mmHg (85-108); SAT O2 ABG 99 % (92-99)
[2019-12-13 05:14] LABS: BASO % 0 % (0-3); EOS # 0.1 x10^3/uL (0.0-0.7); EOS % 2 % (0-3); HEMATOCRIT 30.9 % (39.0-53.0); HEMOGLOBIN 10.1 g/dL (13.0-17.5); LYMPH # 0.5 x10^3/uL (1.0-4.8); LYMPH % 6 % (24-48); MEAN CORPUSCULAR HEMOGLOBIN 29 pg (25-35); MEAN CORPUSCULAR HGB CONC 33 g/dL (31-37); MEAN CORPUSCULAR VOLUME 89 fL (79-100); MONO # 0.2 x10^3/uL (0.0-1.1); MONO % 2 % (0-9); NEUT # 6.4 x10^3/uL (1.8-7.7); NEUT % 89 % (31-73); PLATELET COUNT 96 x10^3/uL (140-400); RED BLOOD COUNT 3.47 x10^6/uL (4.30-5.70); RED CELL DISTRIBUTION WIDTH 14.4 % (11.5-14.5); WHITE BLOOD COUNT 7.2 x10^3/uL (4.0-11.0)
[2019-12-13 05:25] LABS: PROTHROMBIN TIME PATIENT 13.6 SEC (11.7-14.0)
[2019-12-13 05:49] LABS: DIRECT BILIRUBIN 0.4 mg/dL (0.0-0.2); MAGNESIUM 2.2 mg/dL (1.8-2.4); PHOSPHORUS 6.2 mg/dL (2.6-4.7); TOTAL BILIRUBIN 1.2 mg/dL (0.2-1.0)
--- NOTE | 2019-12-13 05:58 | RAD ---
CT of the chest and abdomen without contrast: Clinical History: Donor patient. Axial helical images of the chest and abdomen were obtained without contrast. CT chest without contrast: There is patchy masslike opacities in the lower lungs. There is a mild right effusion. There is no mediastinal or hilar lymphadenopathy. Impression: 1. Patchy masslike opacities in the lower lungs. 2. Mild right pleural effusion. End impression Abdominal CT, Without Contrast: Oral Contrast: No Findings: Evaluation of solid organs is limited without contrast. The colon is collapsed limiting its evaluation. There is apparent mild wall thickening. The appendix is normal. There is a stone in the gallbladder but no evidence of wall thickening or surrounding inflammation. Liver: Normal. Spleen: Normal. Pancreas: Normal. Adrenal Glands: Normal. Kidneys: Normal. There is no free air or free fluid. There is no lymphadenopathy. The urinary bladder appears normal. There is no pericolonic inflammation identified. Impression: Apparent mild wall thickening of the colon could be secondary to pancolitis or could be nondistention. See CT chest without contrast. End impression PQRS Compliance Statement: One or more of the following individualized dose reduction techniques were utilized for this examination: 1. Automated exposure control 2. Adjustment of the mA and/or kV according to patient size 3. Use of iterative reconstruction technique Electronically signed by: Mumtaz Peck III, MD (12/13/2019 5:56 AM) [facility]
[2019-12-13 06:03] LABS: CALCIUM 8.7 mg/dL (8.5-10.1); CREATININE 4.3 mg/dL (0.7-1.3); GFR 15.5; POTASSIUM 4.5 mmol/L (3.5-5.1)
[2019-12-13] MEDS: IV RINGERS,LACTATED 1000ML 1,000 ML IV SCH ×3 (07:28→16:50)
--- NOTE | 2019-12-13 08:09 | EKG ---
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
--- NOTE | 2019-12-13 10:03 | RAD ---
12/13/2019 Procedure: Ultrasound-guided placement of right internal jugular central venous catheter12/13/2019 7:58 AM Clinical Indication: HIGH POSTASIUM DIALYSIS FOR ORGAN DONOR Discussion: The risks and benefits of the procedure were discussed the patient and/or their collections representative. Informed consent was obtained. A timeout procedure was performed. All elements of maximal sterile barrier technique including the use of a cap, mask, sterile gown, sterile gloves, large sterile sheet, appropriate hand hygiene, and 2% chlorhexidine for cutaneous antisepsis (or acceptable alternative antiseptic per current guidelines) were followed for this procedure. The patient was prepped and draped in the usual sterile fashion. Ultrasound interrogation of the right neck revealed patency and compressibility of the right internal jugular vein. A 21-gauge micropuncture was then used to gain access to this vein under ultrasound guidance. A hard copy ultrasound image was recorded. A guidewire was advanced centrally. 5 [place] sheath was placed. Over a wire following dilatation, a dual-lumen temporary dialysis catheter was advanced centrally. Catheter was found to flush and aspirate normally. Follow-up chest radiograph demonstrates tip at the cavoatrial junction. Catheter secured in place and a sterile dressing was applied. No immediate complications were identified. Impression: Successful ultrasound-guided placement of right internal jugular dual-lumen temporary dialysis catheter
[2019-12-13 11:13] LABS: BASE EXCESS ABG -4 mmol/L (-3-3); HCO3 ABG 21 mmol/L (21-28); PCO2 ABG 37 mmHg (35-46); PO2 ABG 288 mmHg (85-108); SAT O2 ABG 99 % (92-99)
[2019-12-13 11:15] LABS: FIO2 ABG 100
[2019-12-13 11:23] LABS: BASO % 0 % (0-3); EOS % 0 % (0-3); HEMATOCRIT 29.5 % (39.0-53.0); HEMOGLOBIN 9.8 g/dL (13.0-17.5); LYMPH # 0.4 x10^3/uL (1.0-4.8); LYMPH % 6 % (24-48); MEAN CORPUSCULAR HEMOGLOBIN 30 pg (25-35); MEAN CORPUSCULAR HGB CONC 33 g/dL (31-37); MEAN CORPUSCULAR VOLUME 89 fL (79-100); MONO # 0.2 x10^3/uL (0.0-1.1); MONO % 3 % (0-9); NEUT # 6.2 x10^3/uL (1.8-7.7); NEUT % 90 % (31-73); PLATELET COUNT 87 x10^3/uL (140-400); RED BLOOD COUNT 3.31 x10^6/uL (4.30-5.70); RED CELL DISTRIBUTION WIDTH 14.4 % (11.5-14.5); WHITE BLOOD COUNT 6.8 x10^3/uL (4.0-11.0)
[2019-12-13 11:34] LABS: PROTHROMBIN TIME PATIENT 14.5 SEC (11.7-14.0)
[2019-12-13] MEDS ORDERED: PIP/TAZO PER PHARMACY MC PRN (11:45)
[2019-12-13 11:51] LABS: ALBUMIN 2.9 g/dL (3.4-5.0); DIRECT BILIRUBIN 0.3 mg/dL (0.0-0.2); PHOSPHORUS 5.5 mg/dL (2.6-4.7); TOTAL BILIRUBIN 0.9 mg/dL (0.2-1.0); TOTAL PROTEIN 5.4 g/dL (6.4-8.2)
--- NOTE | 2019-12-13 11:57 | RAD ---
Single AP view of the chest. Comparison: 12/13/2019 at 12:20 AM. Indication: Lung transplant candidate Findings: Right internal jugular hemodialysis catheter endotracheal tube and nasogastric tubes are unchanged. The heart is not enlarged. Stable small right basilar effusion. Mild bibasilar interstitial opacities are stable. Impression: 1. Stable right basilar effusion with small bibasilar airspace disease. Electronically signed by: Balwinder Moscoso MD (12/13/2019 11:53 AM) [facility]
--- NOTE | 2019-12-13 11:58 | CARD ---
MR#: [id number] Date of Study: 12/12/2019 Ordering Physician: SIDNEY LEE, Referring Physician: SIDNEY LEE Tech: Michelle López RDCS APPROVED REPORT EXAM: Two-dimensional and M-mode echocardiogram with Doppler and color Doppler. Other Information Quality : GoodHR: 97bpm Rhythm : NSR INDICATION Heart transplant 2D DIMENSIONS RVDd2.9 (2.9-3.5cm)Left Atrium(2D)3.4 (1.6-4.0cm) IVSd1.3 (0.7-1.1cm)Aortic Root(2D)2.9 (2.0-3.7cm) LVDd4.0 (3.9-5.9cm)LVOT Diameter1.9 (1.8-2.4cm) PWd1.0 (0.7-1.1cm)LVDs2.7 (2.5-4.0cm) FS (%) 33.9 %SV44.6 ml LVEF(%)63.3 (>50%) M-Mode DIMENSIONS Left Atrium(MM)3.50 (2.5-4.0cm) Aortic Valve AoV Peak Max.130.9cm/sAoV VTI18.5cm AO Peak GR.6.9mmHgLVOT VTI 12.56cm AO Mean GR.4mmHgAVA (VTI)2.00cm2 Mitral Valve MV E Lbmvoxlg49.5cm/sMV DECEL YMCO380ae MV A Hebpktbh88.3cm/sE/A Ratio2.6 MV A Ospehiaa10le TDI Lateral E' P. V15.83cm/sMedial E' P. V14.16cm/s E/Lateral E'5.0E/Medial E'5.5 Tricuspid Valve TR P. Rkzrkvop796ue/sRAP VCERHPSQ5lzJl TR Peak Gr.71lxSyMILP43pgFg LEFT VENTRICLE The left ventricle is normal size. There is borderline to mild concentric left ventricular hypertroph y. The left ventricular systolic function is normal. The Ejection Fraction is 60%. There is normal LV segmental wall motion. The left ventricular diastolic function and filling is normal for age. No lef t ventricle thrombus noted on this study. RIGHT VENTRICLE The right ventricle is normal size. There is normal right ventricular wall thickness. The right ventr icular systolic function is normal. ATRIA The left atrium size is normal. The right atrium size is normal. The interatrial septum is intact wit h no evidence for an atrial septal defect or patent foramen ovale as noted on 2-D or Doppler imaging. AORTIC VALVE The aortic valve is normal in structure and function. The aortic valve is trileaflet. Doppler and Col or Flow revealed no significant aortic regurgitation. There is no significant aortic valvular stenosi s. There is no aortic valvular vegetation. MITRAL VALVE The mitral valve is normal in structure and function. There is no evidence of mitral valve prolapse. There is no mitral valve stenosis. Doppler and Color-flow revealed trace mitral regurgitation. TRICUSPID VALVE The tricuspid valve is normal in structure and function. Doppler and Color Flow revealed trace to mil d tricuspid regurgitation. The PA pressure was estimated at 23 mmHg. There is no tricuspid valve prol apse or vegetation. There is no tricuspid valve stenosis. PULMONIC VALVE The pulmonary valve is normal in structure and function. Doppler and Color Flow revealed no pulmonic valvular regurgitation. There is no pulmonic valvular stenosis. GREAT VESSELS The aortic root is normal in size. The ascending aorta is normal in size. The IVC is normal in size a nd collapses >50% with inspiration. PERICARDIAL EFFUSION There is no evidence of significant pericardial effusion. Critical Notification Critical Value: No <Conclusion> The left ventricular systolic function is normal. The Ejection Fraction is 60%. There is normal LV segmental wall motion. Trace mitral regurgitation. Trace to mild tricuspid regurgitation. The PA pressure was estimated at 23 mmHg. There is no evidence of significant pericardial effusion. Signed by : Zac Edward, Electronically Approved : 12/13/2019 08:45:08
[2019-12-13] MEDS ORDERED: VANCOMYCIN 1.25 GM in IV NORMAL SALINE 250ML 250 ML IV ONE (12:00)
[2019-12-13] MEDS: PIPERACILLIN/TAZOBACTAM 3.375 GM in IV NORMAL SALINE 50ML 50 ML IV SCH ×2 (12:01→18:13)
[2019-12-13 12:07] LABS: CALCIUM 8.5 mg/dL (8.5-10.1); CREATININE 4.2 mg/dL (0.7-1.3); POTASSIUM 4.2 mmol/L (3.5-5.1)
[2019-12-13] MEDS ORDERED: LIDOCAINE 1% Multi-Dose 20 ML VIAL. ONE (13:13)
[2019-12-13] MEDS ORDERED: LIDOCAINE 1% Multi-Dose 20 ML VIAL. INJ ONE (14:15)
[2019-12-13] MEDS ORDERED: NITROGLYCERIN 200 MCG/2 ML SYRINGE FOR CATH/VASC LAB. IART ONE (14:15)
[2019-12-13] MEDS ORDERED: IOHEXOL 300 MG/ML 100ML VIAL. IART ONE (14:15)
[2019-12-13] MEDS ORDERED: NITROGLYCERIN 200 MCG/2 ML SYRINGE FOR CATH/VASC LAB. ONE (14:27)
--- NOTE | 2019-12-13 16:29 | CARD ---
MR#: [id number] Date of Study: 12/13/2019 Ordering Physician: MARTHA MIRANDA, Referring Physician: MARTHA MIRANDA, Tech: RT [place] (R) DEMARIO APPROVED REPORT Technologist: RT [place] (R) DEMARIO Nurse: Juana Britt RN Procedure(s) performed: flouro time 4.2 minutes dose 64.62 Gycm2 contrast 47 cc's no sedation LHC, Coronary angiography, RHC HISTORY The patient is a 39 year-old male with a history of : anoxic brain injury presented for diagnostic an giography as part of a transplant donor w/u. . INDICATION The indication(s) include : Transplant evaluation. Heart Failure Heart Failure: Yes If Yes, Newly Diagnosed: Yes If Yes, HF Type: Diastolic If Yes, NYHA Class: Class III PROCEDURE NARRATIVE The patient was brought electively to the cardiac catheterization lab. A timeout was performed confi rming the patient's name, date of , procedure, and site of procedure. All necessary personnel w ere wearing the appropriate protective equipment and radiation monitor devices. After explaining the risks and benefits of the procedure and alternatives, informed consent was obtained was obtained by the OS transplant team. (See nursing notes for medications administered). The right groin was ster ilely prepped and draped in the usual fashion. The right groin was infiltrated with 20 mL of 2% lido cindy for subcutaneous anesthesia. A 6 Fsheath was inserted into the right femoral artery without di fficulty via the modified seldinger technique with an 18G needle and a J-tipped guidewire. Next, an 8 Fr sheath was inserted in the right common femoral vein in similar fashion without difficulty. A PA catheter was then advanced through the right heart chambers, pressures and saturations were obta ined. Subsequently, right and left coronary angiography was performed using standard JR4 and JL4 diag nostic catheters. Left ventricular end diastolic pressure was obtained with a pigtail catheter and p ullback was performed. HEMODYNAMICS: LVEDP 17 mm Hg AO: 90/70 *No gradient on LV to aortic pullback. PCWP: 20 mm Hg PA:40/20/31 RV: 41/10/16 RA: 15 mm Hg Westley:9.9 L/min Tco: 9.2 L/min PA saturation: 78% FA saturation: 99% on 100% FiO2 LEFT VENTRICULOGRAM: Deferred due to known normal EF and to avoid contrast load. CORONARY ANGIOGRAPHY: LM is a large caliber vessel with normal angiographic appearance. LAD is a large caliber vessel an apical probable spontaneous dissection or medial/intimal injury. LCx is moderate caliber vessel with normal angiographic appearance. RCA is a large caliber vessel with normal angiographic appearance. Conclusion 1. Mildly elevated biventricular filling pressures. 2. Mild pulmonary HTN 3. High cardiac output. 4. No significant coronary disease. Recommendations Information provided to transplant physician, Dr. Mina at [facility]. Signed by : Martha Miranad, Electronically Approved : 12/13/2019 16:29:07
--- NOTE | 2019-12-13 17:17 | RAD ---
Exam: Chest one view INDICATION: Organ donation TECHNIQUE: Frontal view of the chest Comparisons: 12/13/2019 FINDINGS: Endotracheal tube with tip approximately 4 cm above the erlin. There is a right-sided IJ catheter with tip at the atrial caval junction. Enteric tube traverses below the diaphragm, likely within the stomach. The cardiomediastinal silhouette and pulmonary vessels are within normal limits. Hazy opacities at the lung bases bilaterally. Likely small bilateral pleural effusions. IMPRESSION: 1. Lines and tubes described above. 2. Bilateral pleural effusions with adjacent airspace disease may represent atelectasis or edema. Superimposed infectious process is difficult to exclude. Electronically signed by: Steph Duval MD (12/13/2019 5:14 PM) [facility]
[2019-12-13 17:20] LABS: BASE EXCESS ABG -4 mmol/L (-3-3); HCO3 ABG 20 mmol/L (21-28); PCO2 ABG 35 mmHg (35-46); PO2 ABG 225 mmHg (85-108); SAT O2 ABG 99 % (92-99)
[2019-12-13 17:23] LABS: FIO2 ABG 100
[2019-12-13 17:35] LABS: BASO % 0 % (0-3); EOS % 1 % (0-3); HEMATOCRIT 29.5 % (39.0-53.0); HEMOGLOBIN 9.7 g/dL (13.0-17.5); LYMPH # 0.4 x10^3/uL (1.0-4.8); LYMPH % 6 % (24-48); MEAN CORPUSCULAR HEMOGLOBIN 29 pg (25-35); MEAN CORPUSCULAR HGB CONC 33 g/dL (31-37); MEAN CORPUSCULAR VOLUME 89 fL (79-100); MONO # 0.2 x10^3/uL (0.0-1.1); MONO % 3 % (0-9); NEUT # 6.4 x10^3/uL (1.8-7.7); NEUT % 91 % (31-73); PLATELET COUNT 84 x10^3/uL (140-400); RED CELL DISTRIBUTION WIDTH 14.4 % (11.5-14.5)
[2019-12-13 17:44] LABS: PROTHROMBIN TIME PATIENT 14.4 SEC (11.7-14.0)
[2019-12-13 17:48] LABS: ALBUMIN 2.7 g/dL (3.4-5.0); DIRECT BILIRUBIN 0.3 mg/dL (0.0-0.2); PHOSPHORUS 4.3 mg/dL (2.6-4.7)
[2019-12-13] MEDS: VANCOMYCIN PER PHARMACY MC PRN (17:51)
--- NOTE | 2019-12-13 17:51 | NUR ---
Pharmacy Vancomycin Dosing Note S:Consulted to monitor and dose vancomycin started 12/13/19. O:STILLELHAM is a 39 year old M with possible HCAP. Height: 5 feet, 10 inches Weight: 84.6 kg Dosing Weight: Actual Other Antibiotics: ZOSYN 3.375G IV Q6HRS LABS: Last BUN: 47 Last Creatinine: 4.2 Creatinine Clearance: 26 mL/min Last WBC: 7 Last Procalcitonin: - Tmax (past 24 hours): 98.6 Microbiology: [facility] CX PENDING BLOOD CX (12/11): NGTD I/O: 1791/1932 A: Initiating vancomycin for possible pneumonia per chest x-ray, goal trough 15-20 mcg/ml. Patient's SCr is 4.2 with an eCrCl of 26 ml/min. Very hesitant to be aggressive with vancomycin given current state of kidneys. Will give a one time dose today then follow up with a 24 hr level to check vancomycin accumulation: P: 1. Give Vancomycin 1250 mg IV x 1 dose 2. Follow up Random level on 12/14/19 at 1200 3. Pharmacy will continue to monitor, follow and adjust therapy as needed. TONY ESPINOSA [facility], 12/13/19 [id number]
[2019-12-13 17:59] LABS: CALCIUM 8.1 mg/dL (8.5-10.1); GFR 16.9
[2019-12-13] MEDS ORDERED: FUROSEMIDE 40 MG/4 ML VIAL. IVP ONE (18:00)
[2019-12-13 20:38] LABS: BASE EXCESS ABG -3 mmol/L (-3-3); HCO3 ABG 21 mmol/L (21-28); PCO2 ABG 34 mmHg (35-46); PO2 ABG 268 mmHg (85-108); SAT O2 ABG 99 % (92-99)
[2019-12-13 20:50] LABS: FIO2 ABG 100
[2019-12-13 23:04] LABS: BASE EXCESS ABG -3 mmol/L (-3-3); HCO3 ABG 21 mmol/L (21-28); PCO2 ABG 32 mmHg (35-46); PO2 ABG 331 mmHg (85-108); SAT O2 ABG 99 % (92-99)
[2019-12-14] MEDS: IV RINGERS,LACTATED 1000ML 1,000 ML IV SCH
[2019-12-14 00:17] LABS: BASO % 0 % (0-3); EOS % 0 % (0-3); HEMATOCRIT 30.1 % (39.0-53.0); HEMOGLOBIN 9.9 g/dL (13.0-17.5); LYMPH # 0.3 x10^3/uL (1.0-4.8); LYMPH % 4 % (24-48); MEAN CORPUSCULAR HEMOGLOBIN 29 pg (25-35); MEAN CORPUSCULAR HGB CONC 33 g/dL (31-37); MEAN CORPUSCULAR VOLUME 89 fL (79-100); MONO # 0.3 x10^3/uL (0.0-1.1); MONO % 4 % (0-9); NEUT # 7.6 x10^3/uL (1.8-7.7); NEUT % 93 % (31-73); PLATELET COUNT 87 x10^3/uL (140-400); RED BLOOD COUNT 3.38 x10^6/uL (4.30-5.70); RED CELL DISTRIBUTION WIDTH 14.1 % (11.5-14.5); WHITE BLOOD COUNT 8.3 x10^3/uL (4.0-11.0)
[2019-12-14 00:28] LABS: PROTHROMBIN TIME PATIENT 14.5 SEC (11.7-14.0)
[2019-12-14 00:31] LABS: ALBUMIN 2.8 g/dL (3.4-5.0); DIRECT BILIRUBIN 0.3 mg/dL (0.0-0.2); MAGNESIUM 2.2 mg/dL (1.8-2.4); PHOSPHORUS 3.6 mg/dL (2.6-4.7); TOTAL PROTEIN 5.9 g/dL (6.4-8.2)
[2019-12-14 00:42] LABS: CALCIUM 8.6 mg/dL (8.5-10.1); CREATININE 3.9 mg/dL (0.7-1.3); GFR 17.4; POTASSIUM 3.6 mmol/L (3.5-5.1)
[2019-12-14] MEDS: POTASSIUM CHLORIDE 20MEQ 100 ML IV SCH ×2 (00:59→02:05)
[2019-12-14 02:13] LABS: BASE EXCESS ABG -2 mmol/L (-3-3); HCO3 ABG 22 mmol/L (21-28); PCO2 ABG 36 mmHg (35-46); PO2 ABG 369 mmHg (85-108); SAT O2 ABG 99 % (92-99)
[2019-12-14 02:27] LABS: FIO2 ABG 100
[2019-12-14 02:29] LABS: FIO2 ABG 100
--- NOTE | 2019-12-14 03:05 | RAD ---
PORTABLE CHEST 1V Clinical History: Follow-up chest x-ray, organ donor Technique: AP view of the chest was obtained at 12/14/2019 2:18 AM. Comparison: December 13, 2019. Findings: The heart is mildly large. The pulmonary vessels appear normal. There is patchy opacity in the lung bases and obscuration of the left hemidiaphragm. The endotracheal tube NG tube and right jugular lines are again seen unchanged. Impression: Basal infiltrates likely discoid atelectasis. This appears mildly improved. Electronically signed by: Mumtaz Peck III, MD (12/14/2019 3:02 AM) [id number]
[2019-12-14 06:04] LABS: BASE EXCESS ABG -1 mmol/L (-3-3); HCO3 ABG 24 mmol/L (21-28); PCO2 ABG 39 mmHg (35-46); SAT O2 ABG 99 % (92-99)
[2019-12-14 06:17] LABS: PO2 ABG 546 mmHg (85-108)
[2019-12-14 06:18] LABS: FIO2 ABG 100
[2019-12-14 06:19] LABS: CALCIUM 8.7 mg/dL (8.5-10.1); CREATININE 3.8 mg/dL (0.7-1.3); GFR 17.9; POTASSIUM 3.9 mmol/L (3.5-5.1)
[2019-12-14 06:35] LABS: HEMATOCRIT 30.1 % (39.0-53.0); HEMOGLOBIN 9.9 g/dL (13.0-17.5); RED BLOOD COUNT 3.38 x10^6/uL (4.30-5.70); RED CELL DISTRIBUTION WIDTH 14.3 % (11.5-14.5); WHITE BLOOD COUNT 9.2 x10^3/uL (4.0-11.0)
[2019-12-14 07:06] LABS: BILIRUBIN,URINE NEGATIVE (NEG); CLARITY,URINE CLOUDY; COLOR,URINE YELLOW; NITRITE,URINE NEGATIVE (NEG); PROTEIN,URINE NEGATIVE (NEG-TRACE); UROBILINOGEN,URINE 0.2 mg/dL (0.2 mg/dL)
[2019-12-14 07:35] LABS: AMORPHOUS SEDIMENT,UR PRESENT /HPF; BACTERIA,URINE 0 /HPF (0-FEW); SQUAMOUS EPITHELIAL CELL,UR OCC /LPF; WBC,URINE 0 /HPF (0-4)
[2019-12-14] MEDS: PIPERACILLIN/TAZOBACTAM 3.375 GM in IV NORMAL SALINE 50ML 50 ML IV SCH ×4 (08:18→12:03)
[2019-12-14 10:07] LABS: BASE EXCESS ABG 0 mmol/L (-3-3); HCO3 ABG 25 mmol/L (21-28); PCO2 ABG 39 mmHg (35-46); PO2 ABG > 503 mmHg (85-108); SAT O2 ABG 99 % (92-99)
[2019-12-14 10:11] LABS: FIO2 ABG 100
[2019-12-14 11:43] LABS: BASO % 0 % (0-3); EOS % 0 % (0-3); HEMATOCRIT 29.7 % (39.0-53.0); HEMOGLOBIN 9.9 g/dL (13.0-17.5); LYMPH # 0.2 x10^3/uL (1.0-4.8); LYMPH % 3 % (24-48); MEAN CORPUSCULAR HEMOGLOBIN 30 pg (25-35); MEAN CORPUSCULAR HGB CONC 34 g/dL (31-37); MEAN CORPUSCULAR VOLUME 89 fL (79-100); MONO # 0.5 x10^3/uL (0.0-1.1); MONO % 5 % (0-9); NEUT # 8.6 x10^3/uL (1.8-7.7); NEUT % 92 % (31-73); PLATELET COUNT 96 x10^3/uL (140-400); RED BLOOD COUNT 3.36 x10^6/uL (4.30-5.70); RED CELL DISTRIBUTION WIDTH 14.6 % (11.5-14.5); WHITE BLOOD COUNT 9.3 x10^3/uL (4.0-11.0)
[2019-12-14 11:54] LABS: PROTHROMBIN TIME PATIENT 15.3 SEC (11.7-14.0)
[2019-12-14] MEDS ORDERED: CALCIUM CHLORIDE 1,000 MG in IV NORMAL SALINE 100ML 100 ML IV ONE (12:00)
[2019-12-14] MEDS ORDERED: VANCOMYCIN RANDOM LEVEL. MC ONE (12:00)
[2019-12-14 12:02] LABS: ALBUMIN 2.5 g/dL (3.4-5.0); CALCIUM 8.7 mg/dL (8.5-10.1); CREATININE 3.7 mg/dL (0.7-1.3); DIRECT BILIRUBIN 0.1 mg/dL (0.0-0.2); GFR 18.5; MAGNESIUM 2.5 mg/dL (1.8-2.4); PHOSPHORUS 2.8 mg/dL (2.6-4.7); POTASSIUM 4.1 mmol/L (3.5-5.1); TOTAL BILIRUBIN 0.9 mg/dL (0.2-1.0); TOTAL PROTEIN 5.9 g/dL (6.4-8.2)
[2019-12-14] MEDS: VANCOMYCIN PER PHARMACY MC PRN (13:01)
--- NOTE | 2019-12-14 13:02 | NUR ---
Pharmacy Vancomycin Dosing Note S: Consulted to monitor and dose vancomycin started 12/13/19. O: STILL,ELHAM is a 39 year old M with HCAP. Other Antibiotics: ZOSYN 3.375G IV Q6HRS LABS: Last BUN: 53 Last Creatinine: 3.7 Creatinine Clearance: 29 mL/min Last WBC: 9.3 Last Procalcitonin: - Tmax (past 24 hours): 98.6 Microbiology: [facility] CX PENDING BLOOD CX (12/11): NGTD I/O: 380/ -- Drug Levels: Last Random level: 10.1 on 12/14/19 at 1128 Last dose given 12/13/19 at 1235 Vancomycin Dosing: Dosing Weight: Actual Target Trough: 15-20 A: Based on: patient's renal function and weight. P: 1. Begin Vancomycin 1250 mg IV One Time 2. Follow up Random level on 12/15/19 at 1330 3. Pharmacy will continue to monitor, follow and adjust therapy as needed. YANI INTERIANO [facility], 12/14/19 [id number]
--- NOTE | 2019-12-14 13:25 | NUR ---
Pt to OR with [facility] staff, Anesthesia, RT, and RN @ 1325. Pt on Monitor, portable Ventilator.
[2019-12-14] MEDS ORDERED: VASOPRESSIN 20 UNIT/ML VIAL. ONE (13:54)
[2019-12-14] MEDS ORDERED: 0.9 % SODIUM CHLORIDE 20 ML VIAL. IJ ONE (13:55)
[2019-12-14] MEDS ORDERED: VANCOMYCIN 1.25 GM in IV NORMAL SALINE 250ML 250 ML IV ONE (14:00)
[2019-12-15] MEDS ORDERED: VANCOMYCIN RANDOM LEVEL. MC ONE (13:30)
== END 2019-12-14 16:45 | disposition home or self-care (01) ==
LOC: 1 WEST ICU 11:35 → SDC 11:35 → EEVIPCON 11:35 → SDC 12-14 16:45
PROVIDERS: ATTEND Surgery
DX: Z03.89 Encounter for observation for other suspected diseases and conditions ruled out (principal); I50.9 Heart failure, unspecified; I27.20 Pulmonary hypertension, unspecified; Z79.899 Other long term (current) drug therapy
CPT/HCPCS: 36415; 36558; 36600; 71045; 71250; 74150; 76937; 80048; 80076; 80202; 81001; 82150; 82310; 82550; 82805; 82962; 82977; 83036; 83605; 83615; 83690; 83735; 84100; 84132; 84484; 85025; 85027; 85384; 85610; 85730; 86706; 86850; 86900; 86901; 86920; 87040; 87070; 87086; 87186; 87205; 87340; 88307; 88313; 88331; 93005; 93306; 93460; 94003; 94760; C1769; C1773; C1892; J0171; J1644; J1940; J2543; J3370; J3475; J3480; J3490; J7030; J7040; J7050; J7120; P9016; P9046; Q9967; S2055; 85007; G0378